=== PATIENT | male | born 1990 | race Caucasian/White ===

== ENCOUNTER 2021-02-28 06:45 | Inpatient (IN) | payer BC ==
[~2021-02-28] VITALS: Ht 174 cm; Wt 78.6 kg
--- NOTE | 2021-02-28 06:56 | NUR ---
Pt w/ c/ N/V, abd pain, [place]WOOD, cough and "fever at night." Sent by work. No COVID vax. Patient with steady gait to room. postioned to comfort on bed. nadn. attached to monitors.
[2021-02-28 07:29] LABS: BASOPHILS % (AUTO) 1 % (0-1); EOSINOPHILS % (AUTO) 1 % (1-7); LYMPHOCYTES % (AUTO) 19 % (22-44); MEAN CORPUSCULAR HEMOGLOBIN 33.3 pg (27.5-34.5); MEAN CORPUSCULAR HGB CONC 33.9 g/dL (33.2-36.2); MEAN PLATELET VOLUME 8.1 fL (7.4-10.4); MONOCYTES % (AUTO) 8 % (2-9); NEUTROPHILS % (AUTO) 71 % (42-75); PLATELET COUNT 247 x10^3/uL (130-400); RED BLOOD COUNT 4.45 x10^6/uL (4.38-5.82); RED CELL DISTRIBUTION WIDTH 13.9 % (9.4-14.8)
[2021-02-28] MEDS ORDERED: ONDANSETRON ODT 4 MG ONE (07:29)
[2021-02-28] MEDS ORDERED: ONDANSETRON 2MG/ML, 2ML ONE (07:29)
[2021-02-28] MEDS ORDERED: MAALOX/HYOSCYAMINE/LIDOCAINE 45 ML BTL ONE (07:30)
[2021-02-28] MEDS ORDERED: ONDANSETRON 2MG/ML, 2ML IVPush ONE (07:30)
[2021-02-28] MEDS ORDERED: MAALOX/HYOSCYAMINE/LIDOCAINE 45 ML BTL PO ONE (07:30)
[2021-02-28] MEDS ORDERED: SODIUM CHLORIDE 0.9% 1,000ML IVBOLUS ONE ×2 (07:30→10:00)
[2021-02-28] MEDS ORDERED: FAMOTIDINE 20 MG/2 ML IVPush ONE (07:30)
[2021-02-28] MEDS ORDERED: SODIUM CHLORIDE FLUSH 10ML SYR IVF ONE (07:30)
[2021-02-28] MEDS ORDERED: FAMOTIDINE 20 MG/2 ML ONE (07:31)
[2021-02-28 07:40] LABS: ALANINE AMINOTRANSFERASE 16 U/L (12-78); ALBUMIN 3.4 g/dL (3.4-5.0); ANION GAP 6 mmol/L (5-15); CALCIUM 8.5 mg/dL (8.5-10.1); CHLORIDE 108 mmol/L (98-107); CREATININE 3.44 mg/dL (0.7-1.3)
[2021-02-28 07:42] LABS: ALKALINE PHOSPHATASE 60 U/L (45-117); BILIRUBIN,TOTAL 0.7 mg/dL (0.2-1.0); TOTAL PROTEIN 6.8 g/dL (6.4-8.2)
--- NOTE | 2021-02-28 07:44 | NUR ---
Song PERSON evaluated. pt medicated per emar. vss. marissan.
[2021-02-28 07:54] LABS: RAPID INFLUENZA A Negative (Negative); RAPID INFLUENZA B Negative (Negative)
[2021-02-28 08:26] LABS: MICROSCOPIC NOT IND
--- NOTE | 2021-02-28 09:02 | NUR ---
pt resting in bed with c/o nausea. notifed. vss. pt to get US
[2021-02-28] MEDS ORDERED: PROMETHAZINE 25 MG/ML, 1ML ONE (09:06)
--- NOTE | 2021-02-28 09:20 | NUR ---
PT MEDICATED PER EMAR. DR. KEENAN TO BEDSIDE TO DISCUSS POC. VSS. PROSPER
[2021-02-28] MEDS ORDERED: PROMETHAZINE 25 MG/ML, 1ML IM ONE (10:00)
--- NOTE | 2021-02-28 10:13 | NUR ---
MOTHER DELGADO CASE [phone]. OKAY TO GIVE INFORMATION TO. WOULD LIKE UPDATES.
--- NOTE | 2021-02-28 10:56 | NUR ---
REPORT CALLED TO CAROLINE GEORGE
[2021-02-28] MEDS ORDERED: BISACODYL 10 MG SUPP PR PRN (12:00)
[2021-02-28] MEDS ORDERED: ONDANSETRON ODT 4 MG PO PRN (12:00)
[2021-02-28] MEDS ORDERED: ACETAMINOPHEN 325 MG TABLET PO PRN (12:00)
[2021-02-28] MEDS ORDERED: POLYETHYLENE GLYCOL 17 GM PACKET PO PRN (12:00)
[2021-02-28] MEDS ORDERED: PROMETHAZINE 25 MG/ML, 1ML IM PRN (12:00)
[2021-02-28] MEDS ORDERED: ONDANSETRON 2MG/ML, 2ML IVPush PRN (12:00)
[2021-02-28] MEDS ORDERED: hydrALAzine 20 MG/ML, 1ML IVPush PRN (12:00)
[2021-02-28] MEDS: HEPARIN 5,000 UNITS/ML, 1ML SQ SCH ×2 (12:00→20:00)
--- NOTE | 2021-02-28 12:30 | NUR ---
REPORT CALLED TO MONAE GEORGE
[2021-02-28] MEDS: SODIUM CHLORIDE 0.9% 1,000 ML IV SCH ×2 (12:57→20:37)
[2021-02-28 13:11] VITALS: BP 113/77
[2021-02-28 14:00] VITALS: BP 113/77
[2021-02-28 19:18] VITALS: BP 112/66
[2021-03-01 01:30] VITALS: BP 102/60
[2021-03-01] MEDS: HEPARIN 5,000 UNITS/ML, 1ML SQ SCH ×2 (04:00→12:00)
[2021-03-01] MEDS: SODIUM CHLORIDE 0.9% 1,000 ML IV SCH (04:07)
[2021-03-01 06:09] LABS: BASOPHILS % (AUTO) 1 % (0-1); EOSINOPHILS % (AUTO) 1 % (1-7); LYMPHOCYTES % (AUTO) 21 % (22-44); MEAN CORPUSCULAR HEMOGLOBIN 32.9 pg (27.5-34.5); MEAN CORPUSCULAR HGB CONC 33.6 g/dL (33.2-36.2); MEAN PLATELET VOLUME 8.7 fL (7.4-10.4); MONOCYTES % (AUTO) 8 % (2-9); NEUTROPHILS % (AUTO) 70 % (42-75); PLATELET COUNT 227 x10^3/uL (130-400); RED BLOOD COUNT 4.41 x10^6/uL (4.38-5.82)
[2021-03-01 06:14] LABS: ANION GAP 7 mmol/L (5-15); CALCIUM 7.9 mg/dL (8.5-10.1); CHLORIDE 112 mmol/L (98-107); CREATININE 2.58 mg/dL (0.7-1.3)
[2021-03-01 06:19] VITALS: BP 128/80
[2021-03-01] MEDS ORDERED: D5%-0.45% NACL 1,000 ML IV SCH (08:30)
[2021-03-01] MEDS ORDERED: SENNA/DOCUSATE TABLET PO SCH (09:00)
[2021-03-01 12:58] VITALS: BP 122/74
== END 2021-03-01 16:12 | disposition home or self-care (01) | DRG 684 ==
LOC: ED 10:13 → EDIP 10:15 → 3N 12:29 → DCLOUNGE 03-01 16:05
PROVIDERS: ADMIT Family Medicine; ATTEND Family Medicine
DX: N17.0 Acute kidney failure with tubular necrosis (principal); Z20.822 Contact with and (suspected) exposure to COVID-19; F12.90 Cannabis use, unspecified, uncomplicated; K59.00 Constipation, unspecified; Z82.49 Family history of ischemic heart disease and other diseases of the circulatory system; Z83.3 Family history of diabetes mellitus
CPT/HCPCS: 36415; 71045; 76770; 80048; 80053; 81003; 82550; 83690; 85025; 87400; 96361; 96374; 96375; G0378; J2405; J2550; U0005; J7030; U0003